=== PATIENT | male | born 1960 | race Caucasian/White ===

== ENCOUNTER 2019-04-28 17:40 | Emergency (ER) | payer BC, SELFPAY ==
[2019-04-28 17:55] VITALS: BP 153/74; PULSE 86; RESP 16; TEMP 36.7; O2SAT 98
--- NOTE | 2019-04-28 18:02 | ED.GENADULT ---
HPI - General Adult General Chief complaint: Animal Bite Stated complaint: dog bite on right ring finger Time Seen by Provider: 04/28/19 18:02 Source: patient Mode of arrival: ambulatory Limitations: no limitations History of Present Illness HPI narrative: 58-year-old male patient presents to the [facility] with complaints of a dog bite to the right ring finger on the dorsal side. Patient states that he was breaking up a dog fight at his home this evening and tried to get his daughter's Rottweiler off of his dog and used his hands to pry open the mouth of the Rottweiler and got bit. Patient states that he is a diabetic. Patient states that he did rinse off the wound at home. Patient unaware of when his last test this shot was. Patient states he came to come and get it checked out and possibly get some antibiotics. Related Data Home Medications Medication Instructions Recorded Confirmed atorvastatin 40 mg PO DAILY 04/28/19 04/28/19 dulaglutide [Trulicity] 0.75 mg SUBCUT WEEKLY 04/28/19 04/28/19 esomeprazole magnesium 40 mg PO DAILY 04/28/19 04/28/19 losartan 25 mg PO DAILY 04/28/19 04/28/19 melatonin 10 mg PO HS 04/28/19 04/28/19 metformin 1,000 mg PO DAILY 04/28/19 04/28/19 Allergies Allergy/AdvReac Type Severity Reaction Status Date / Time No Known Allergies Allergy Verified 04/28/19 18:09 Review of Systems Review of Systems: Narrative: CONSTITUTIONAL: Denies fever, chills, or sweats. EYES: Denies visual changes, redness, or discharge. ENT: Denies rhinorrhea, congestion, sore throat, or otalgia. CARDIOVASCULAR: Denies chest pain, palpitations, or edema. RESPIRATORY: Denies cough or dyspnea. GASTROINTESTINAL: Denies abdominal pain, nausea, vomiting, or diarrhea. GENITOURINARY: Denies dysuria or hematuria. SKIN: Denies rash or itching. Positive wound to right ring finger on palm side from dog bite MUSCULOSKELETAL: Denies back pain, joint pain, or myalgia. NEUROLOGIC: Denies headache, numbness, or weakness. PSYCHIATRIC: Denies anxiety or depression. PMFSH Comments At the time of my signature I agree with nursing past medical history, surgical, social, and family history. There is no relevant family history pertinent to the presenting complaint. Exam Narrative: Exam Narrative: GENERAL: Well-appearing, well-nourished, and in no acute distress. HEAD: Normocephalic, atraumatic. EYES: PERRLA and EOMI. ENT: Nares clear, no rhinorrhea or epistaxis. Mucous membranes moist. NECK: Supple. No lymphadenopathy CHEST: Clear to auscultation. No respiratory distress. HEART: Regular rate and rhythm. No murmur heard. Normal peripheral pulses. ABDOMEN: Soft, nontender, nondistended, normal active bowel sounds. EXTREMITIES: Normal range of motion. No edema. SKIN: Warm, dry, no rash. Patient has small puncture wound with some oozing bleeding noted to the right ring finger on the palm side right above the PIP joint. Patient does have excellent range of motion to the finger and hand. Patient states it does feel little stiff. NEURO: No focal deficits. Alert and oriented x3. Course Vital Signs Vital signs: Vital Signs Temperature 36.7 C 04/28/19 17:55 Pulse Rate 86 04/28/19 17:55 Respiratory Rate 16 04/28/19 17:55 Blood Pressure 153/74 H 04/28/19 17:55 Pulse Oximetry 98 04/28/19 17:55 Temperature 36.7 C 04/28/19 17:55 Pulse Rate 86 04/28/19 17:55 Respiratory Rate 16 04/28/19 17:55 Blood Pressure 153/74 H 04/28/19 17:55 Pulse Oximetry 98 04/28/19 17:55 Vital signs reviewed. The patient has been informed that they may have pre-hypertension or Hypertension based on a BP reading in the department. I recommend that the patient call the primary care provider listed on their discharge instructions or a physician of their choice this week to arrange follow up for further evaluation of possible pre-hypertension or Hypertension Procedures Other Procedure Procedure 1: Other Procedure: The woun
[2019-04-28] MEDS: TETANUS,DIPHTHERIA,AC PERTUSSIS ADULT 0.5 ML (ADACEL) IM (18:22)
== END 2019-04-28 18:42 | disposition home or self-care (01) ==
PROVIDERS: Emergency Provider Nurse Practitioner Family
DX: S61.234A Puncture wound without foreign body of right ring finger without damage to nail, initial encounter (principal); W54.0XXA Bitten by dog, initial encounter; Z23 Encounter for immunization; E78.00 Pure hypercholesterolemia, unspecified; I10 Essential (primary) hypertension; K21.9 Gastro-esophageal reflux disease without esophagitis; E11.9 Type 2 diabetes mellitus without complications
CPT/HCPCS: 90471; 90715; 99203; G0463

== ENCOUNTER 2023-02-27 16:33 | Emergency (ER) | payer BC, SELFPAY ==
[2023-02-27 16:45] VITALS: BP 143/70; PULSE 98; RESP 16; TEMP 37.2; O2SAT 98
--- NOTE | 2023-02-27 17:29 | ED.URI ---
HPI - URI/Sore Throat General Chief Complaint: Upper Respiratory Infection Stated Complaint: Cough/Chest Congestion Time Seen by Provider: 02/27/23 17:30 Source: patient, RN notes reviewed and old records reviewed Mode of arrival: ambulatory Limitations: no limitations History of Present Illness HPI Narrative: 62 year old male presents to [facility] care with complaints of cough and for 3 weeks, Patient reports that he initially had sinus congestion and headache and his ears felt clogged but drainage has been clear. Patient reports that he continues to have cough which is worse at night. patient reports that he has taken Mucinex,Sudafed and used Delsym for the cough. Patient reports no known fevers, chills or body aches. MD elicited complaint: cough, rhinorrhea and nasal congestion Onset (ago): week(s) (3) Severity: moderate Treatments prior to arrival: other (Mucinex,Sudafed andDelsym) Related Data Home Medications Medication Instructions Recorded Confirmed atorvastatin 40 mg tablet 40 mg PO DAILY 04/28/19 02/27/23 dulaglutide 0.75 mg/0.5 mL 0.75 mg subcut WEEKLY 04/28/19 02/27/23 subcutaneous pen injector (Trulicity) esomeprazole magnesium 40 mg 40 mg PO DAILY 04/28/19 02/27/23 capsule,delayed release losartan 25 mg tablet 25 mg PO DAILY 04/28/19 02/27/23 metformin 1,000 mg tablet 1,000 mg PO DAILY 04/28/19 02/27/23 aspirin 81 mg tablet 81 mg PO DAILY 02/27/23 02/27/23 terazosin 5 mg capsule 5 mg PO DAILY 02/27/23 02/27/23 Allergies Allergy/AdvReac Type Severity Reaction Status Date / Time No Known Allergies Allergy Verified 04/28/19 18:09 Review of Systems Review of Systems: CONSTITUTIONAL: Denies malaise, chills, sweats, or fever. EYES: Denies visual changes, redness, or discharge. ENT: Reports rhinorrhea, congestion, sinus pain, otalgia and no sore throat. CARDIOVASCULAR: Denies chest pain, palpitations, or edema. RESPIRATORY: Reports cough.? Denies dyspnea. GASTROINTESTINAL: Denies abdominal pain, nausea, vomiting, diarrhea SKIN: Denies rash or itching. MUSCULOSKELETAL: Denies myalgia. NEUROLOGIC: Denies headache. All systems reviewed & are unremarkable except as noted in HPI and below PMFSH Past Medical History Medical History Diabetes GERD (gastroesophageal reflux disease) Hyperlipidemia Hypertension Social History Social History (Updated 03/03/23 @ 06:48 by Sunshine Nava NP) Smoking status: Current some day smoker Tobacco type: cigars Alcohol intake: unknown Substance use type: does not use Living arrangements: with family Comments At time of signature, agree with nursing past medical, surgical, social and family history. There is no relevant family history pertinent to the presenting complaint Exam Narrative: GENERAL: Well-appearing, well-nourished, and in no acute distress. HEAD: Normocephalic EYES: PERRLA, conjunctivae clear ENT: Nares clear, turbinates edematous and erythematous, clear discharge. Mucous membranes moist. TM pearly raphael with dull light reflex bilaterally; no tragal tenderness. Oropharynx erythematous without lesions. Tonsils not enlarged and without exudate, no drooling, no hoarseness, no trismus, uvula midline.post nasal drainage NECK: Supple. No lymphadenopathy CHEST: Clear to auscultation, breath sounds equal. No wheezing, rhonchi, rales, or stridor. No respiratory distress, speaks in full sentences.cough noted SAO2 98% on room air HEART: Regular rate and rhythm. No murmur heard. SKIN: Warm, dry, no rash. NEURO: Alert and oriented x3. PSYCH: Normal mood and affect Course Course Emergency Course: Patient is aware of diagnosis, understands and agrees to treatment plan.? Anticipatory guidance given.? Patient agrees to follow-up as directed and is aware of reasons to seek care at the emergency department. Portions of this record may have been created with voi
== END 2023-02-27 17:48 | disposition home or self-care (01) ==
PROVIDERS: Emergency Provider Registered Nurse
DX: J32.9 Chronic sinusitis, unspecified (principal); R05.9 Cough, unspecified; E11.9 Type 2 diabetes mellitus without complications; Z79.84 Long term (current) use of oral hypoglycemic drugs; K21.9 Gastro-esophageal reflux disease without esophagitis; E78.5 Hyperlipidemia, unspecified; I10 Essential (primary) hypertension; F17.290 Nicotine dependence, other tobacco product, uncomplicated
CPT/HCPCS: 99203; G0463